=== PATIENT | female | born 1980 | race Two or more races ===

== ENCOUNTER 2020-09-08 15:19 | Emergency (ER) | payer OTHER ==
[~2020-09-08] VITALS: Ht 160 cm; Wt 104.8 kg
[~2020-09-08 15:19] MED LIST: NO TOMA MED
[2020-09-08] MEDS ORDERED: VITAMIN C WIT1000 MG PO (20:17)
[2020-09-08] MEDS ORDERED: ACETAMINOPHEN650 M2 PO (20:17)
[2020-09-08] MEDS ORDERED: MUCINEX D ER 11 EACH PO (20:17)
== END 2020-09-08 20:02 | disposition home or self-care (01) ==
LOC: ER 15:19
DX: J06.9 Acute upper respiratory infection, unspecified (principal); Z03.818 Encounter for observation for suspected exposure to other biological agents ruled out

== ENCOUNTER 2020-12-18 13:44 | Emergency (ER) | payer OTHER ==
[~2020-12-18] VITALS: Ht 157.5 cm; Wt 106.6 kg
[~2020-12-18 13:44] MED LIST changes: +ACETAMINOPHEN650 M2 PO; +MUCINEX D ER 11 EACH PO; +VITAMIN C WIT1000 MG PO
[2020-12-18] MEDS ORDERED: SYMBICORT 16010.2 GM IH (18:41)
[2020-12-18] MEDS ORDERED: MUCINEX DM ER1 EAC1 PO (18:41)
[2020-12-18] MEDS ORDERED: ZYRTEC10 MG PO (18:41)
== END 2020-12-18 20:50 | disposition home or self-care (01) ==
LOC: ER 13:44
DX: J06.9 Acute upper respiratory infection, unspecified (principal); B34.9 Viral infection, unspecified; Z11.52 Encounter for screening for COVID-19

== ENCOUNTER 2025-04-17 16:23 | Emergency (ER) | payer OTHER ==
[~2025-04-17] VITALS: Ht 160 cm; Wt 110.2 kg
[~2025-04-17 16:23] MED LIST changes: +MUCINEX DM ER1 EAC1 PO; +SYMBICORT 16010.2 GM IH; +ZYRTEC10 MG PO
[2025-04-17] MEDS ORDERED: ZESTRIL2.5 MG (16:39)
[2025-04-17] MEDS ORDERED: PEPCID AC20 MG (16:39)
[2025-04-17] MEDS ORDERED: NEURONTIN300 MG (16:40)
[2025-04-17] MEDS ORDERED: KETOROLAC TROMETHAMINE 15 MG VIAL IM STA (18:29)
[2025-04-17] MEDS ORDERED: IBU600 MG PO (20:39)
== END 2025-04-17 20:53 | disposition home or self-care (01) ==
LOC: ER 16:23
DX: G89.11 Acute pain due to trauma (principal); M25.539 Pain in unspecified wrist; I10 Essential (primary) hypertension